=== PATIENT | male | born 1995 | race Caucasian/White ===

== ENCOUNTER 2018-04-04 12:48 | Emergency (ER) | payer BC, OTHER ==
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
[2018-04-04] MEDS ORDERED: Bacitracin Oint 1 GM U/D Packet TOP ONE (13:36)
--- NOTE | 2018-04-04 14:28 | CR ---
EXAMINATION: Two-view chest (PA and Lateral views). HISTORY: Shortness of breath. FINDINGS: The trachea is midline. The cardiomediastinal silhouette is within normal limits. No pulmonary infilt rates, effusions or pneumothorax. Osseous structures appear unremarkable. IMPRESSION: No acute cardiopulmonary process.
--- NOTE | 2018-04-04 14:31 | CR ---
EXAMINATION: Left knee HISTORY: Pain COMPARISON: None TECHNIQUE: 3 views FINDINGS/IMPRESSION: There is no acute osseous abnormality, joint effusion, dislocation, or fracture. Moderate prepatellar soft tissue swelling. Joint spaces and bone mineralization are normal.
== END 2018-04-04 15:00 | disposition home or self-care (01) ==
LOC: MW.ED 12:48
DX: S89.92XA Unspecified injury of left lower leg, initial encounter (principal); L03.116 Cellulitis of left lower limb; Z88.0 Allergy status to penicillin; Z88.2 Allergy status to sulfonamides; V59.9XXA Occupant (driver) (passenger) of pick-up truck or van injured in unspecified traffic accident, initial encounter
CPT/HCPCS: 71046; 71046-26; 73562-26-LT; 73562-LT; 99283

== ENCOUNTER 2019-07-23 19:34 | Emergency (ER) | payer OTHER ==
[2019-07-23] MEDS ORDERED: cefTRIAXone 1 GM in Premix Bag 1 BAG IV ONE (19:36)
[2019-07-23] MEDS ORDERED: HYDROmorphone 2 MG/ML Syringe IVPUSH ONE ×2 (19:37→21:00)
[2019-07-23] MEDS ORDERED: Diphtheria,Pertussis(Acell),Tetanus Vaccine 0.5 ML Syringe IM ONE (19:37)
[2019-07-23] MEDS ORDERED: Sodium Chloride 0.9% 1,000 ML IV ONE (19:44)
[2019-07-23] MEDS ORDERED: HYDROmorphone 1 MG/ML Syringe IVPUSH ONE (19:44)
[2019-07-23] MEDS ORDERED: cefTRIAXone 1 GM Vial IM ONE (19:45)
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
[2019-07-23 20:16] LABS: BLOOD UREA NITROGEN,BUN 10 mg/dL (7.0-18.0); CARBON DIOXIDE,CO2 24.6 mmol/L (21.0-32.0); CHLORIDE,CL 105 mmol/L (98-107); GLUCOSE RANDOM 120 mg/dL (74-106); POTASSIUM,K 3.2 mmol/L (3.5-5.1); SODIUM,NA 143 mmol/L (136-148)
== END 2019-07-23 21:14 ==
LOC: MW.ED 19:34
DX: S82.301B Unspecified fracture of lower end of right tibia, initial encounter for open fracture type I or II (principal); S93.04XA Dislocation of right ankle joint, initial encounter; Z88.0 Allergy status to penicillin; Z88.2 Allergy status to sulfonamides; V27.4XXA Motorcycle driver injured in collision with fixed or stationary object in traffic accident, initial encounter
CPT/HCPCS: 27840; 36415; 71045; 72170; 73600; 80053; 80320; 82550; 84484; 85025; 85610; 86850; 86900; 86901; 87040; 93005; 96360; 96365; 96375; 99285; J0696; J1170; J7040; 90471; G0480

== ENCOUNTER 2023-08-14 15:30 | Observation (INO) | payer SELFPAY ==
[2023-08-14] MEDS ORDERED: Sodium Chloride 0.9% 1,000 ML IV ONE ×2 (15:33→19:01)
[2023-08-14] MEDS ORDERED: Morphine 4 MG/ML Syringe IVPUSH ONE (15:33)
[2023-08-14] MEDS ORDERED: Ondansetron 4 MG/2 ML SDV IVPUSH ONE (15:33)
[2023-08-14 15:56] LABS: BASOPHILS PERCENT AUTO 0.2 % (0.0-1.5); EOSINOPHILS ABSOLUTE AUTO 0.1 K/uL (0.0-0.7); EOSINOPHILS PERCENT AUTO 0.3 % (0.0-7.0); HEMATOCRIT 51.9 % (38.0-50.0); HEMOGLOBIN 18.1 g/dL (13.0-17.0); LYMPHOCYTES ABSOLUTE AUTO 1.7 K/uL (0.6-2.4); LYMPHOCYTES PERCENT AUTO 9.7 % (16.0-40.0); MEAN CORPUSCULAR HEMOGLOBIN 31.2 pg (27.0-32.0); MEAN CORPUSCULAR HGB CONC 34.9 g/dL (31.0-37.0); MEAN CORPUSCULAR VOLUME 89.3 fL (80.0-98.0); MONOCYTES ABSOLUTE AUTO 1.3 K/uL (0.0-0.8); MONOCYTES PERCENT AUTO 7.3 % (0.0-15.0); NEUTROPHILS ABSOLUTE AUTO 14.2 K/uL (1.4-5.7); NEUTROPHILS PERCENT AUTO 82.5 % (48.0-80.0); NRBC ABSOLUTE 0 K/uL; PLATELET COUNT,PLT 260 K/uL (150-400); RED BLOOD CELL COUNT 5.81 M/uL (4.50-5.90); WHITE BLOOD CELL COUNT,WBC 17.23 K/uL (4.0-11.0)
[2023-08-14] MEDS ORDERED: cefOXitin 2 GM in Sodium Chloride 0.9% 50 ML IV ONE (16:05)
[2023-08-14 16:34] LABS: A/G RATIO 1.1 (0.9-1.6); ALBUMIN 4.4 g/dL (3.4-5.0); BILIRUBIN TOTAL 4.5 mg/dL (0.2-1.0); CALCIUM 9.6 mg/dL (8.5-10.1); CARBON DIOXIDE,CO2 21.5 mmol/L (21.0-32.0); CREATININE 1.5 mg/dL (0.8-1.3); EST CRCL DRUG DOSING (CG) 60.3 mL/min; PROTEIN TOTAL,TP 8.5 g/dL (6.4-8.2)
[2023-08-14] MEDS ORDERED: Iopamidol 755 MG/ML 500 ML Multipack Bottle IVPUSH STA (16:57)
[2023-08-14] MEDS ORDERED: HYDROmorphone 1 MG/ML Syringe IVPUSH ONE (17:05)
[2023-08-14] MEDS ORDERED: Famotidine 20 MG/2 ML SDV IVPUSH ONE (20:40)
[2023-08-14] MEDS ORDERED: Ropivacaine 0.5% 5 MG/ML 30 ML SDV ONE (20:48)
[2023-08-14] MEDS ORDERED: Bupivacaine 0.5% 30 ML SDV ONE (20:53)
[2023-08-14] MEDS ORDERED: Morphine 10 MG/ML SDV ONE (20:57)
[2023-08-14] MEDS ORDERED: Propofol 200 MG/20 ML SDV ONE (21:00)
[2023-08-14] MEDS ORDERED: fentaNYL 250 MCG/5 ML SDV ONE (21:00)
[2023-08-14] MEDS ORDERED: cefOXitin 1 GM Vial ONE (21:44)
[2023-08-14] MEDS ORDERED: Naloxone 0.4 MG/ML SDV IVPUSH PRN (22:37)
[2023-08-14] MEDS ORDERED: Acetaminophen 1,000 MG in Premix Bag 1 BAG IV PRN (22:37)
[2023-08-14] MEDS ORDERED: HYDROmorphone 1 MG/ML Syringe IVPUSH PRN (22:37)
[2023-08-14] MEDS ORDERED: Ondansetron 4 MG/2 ML SDV IVPUSH PRN (22:37)
[2023-08-14] MEDS ORDERED: Sodium Chloride 0.9% 1,000 ML IV SCH (22:45)
[2023-08-14] MEDS ORDERED: cefOXitin 2 GM in Sodium Chloride 0.9% 50 ML IV SCH (22:45)
[2023-08-14] MEDS: Levofloxacin/Dextrose 5%-Water 500 MG in Premix Bag 1 BAG IV SCH (23:56)
[2023-08-15] MEDS: metroNIDAZOLE/Normal Saline 500 MG in Premix Bag 1 BAG IV SCH ×5 (00:59→23:37)
[2023-08-15] MEDS: Acetaminophen/HYDROcodone 325-5 MG Tab PO PRN ×4 (01:10→20:25)
[2023-08-15 06:19] LABS: BASOPHILS PERCENT AUTO 0.2 % (0.0-1.5); EOSINOPHILS ABSOLUTE AUTO 0.1 K/uL (0.0-0.7); EOSINOPHILS PERCENT AUTO 0.5 % (0.0-7.0); HEMATOCRIT 41.2 % (38.0-50.0); HEMOGLOBIN 13.7 g/dL (13.0-17.0); LYMPHOCYTES ABSOLUTE AUTO 0.9 K/uL (0.6-2.4); LYMPHOCYTES PERCENT AUTO 9.4 % (16.0-40.0); MEAN CORPUSCULAR HEMOGLOBIN 30.9 pg (27.0-32.0); MEAN CORPUSCULAR HGB CONC 33.3 g/dL (31.0-37.0); MEAN CORPUSCULAR VOLUME 92.8 fL (80.0-98.0); MONOCYTES ABSOLUTE AUTO 0.8 K/uL (0.0-0.8); MONOCYTES PERCENT AUTO 8.2 % (0.0-15.0); NEUTROPHILS ABSOLUTE AUTO 7.7 K/uL (1.4-5.7); NEUTROPHILS PERCENT AUTO 81.7 % (48.0-80.0); NRBC ABSOLUTE 0 K/uL; PLATELET COUNT,PLT 179 K/uL (150-400); RED BLOOD CELL COUNT 4.44 M/uL (4.50-5.90); WHITE BLOOD CELL COUNT,WBC 9.39 K/uL (4.0-11.0)
[2023-08-15 06:48] LABS: ALBUMIN 2.8 g/dL (3.4-5.0); BILIRUBIN TOTAL 3.3 mg/dL (0.2-1.0); CALCIUM 8.1 mg/dL (8.5-10.1); CARBON DIOXIDE,CO2 29.1 mmol/L (21.0-32.0); CREATININE 1.3 mg/dL (0.8-1.3); EST CRCL DRUG DOSING (CG) 77.68 mL/min; POTASSIUM,K 4.4 mmol/L (3.5-5.1); PROTEIN TOTAL,TP 6.1 g/dL (6.4-8.2)
[2023-08-15 06:52] LABS: A/G RATIO 0.9 (0.9-1.6)
[2023-08-15] MEDS ORDERED: Phenylephrine HCl 0.5 MG/5 ML AMP IV ONE (14:38)
[2023-08-15] MEDS: Levofloxacin/Dextrose 5%-Water 500 MG in Premix Bag 1 BAG IV SCH (22:01)
[2023-08-16] MEDS: Acetaminophen/HYDROcodone 325-5 MG Tab PO PRN (03:00)
[2023-08-16] MEDS: metroNIDAZOLE/Normal Saline 500 MG in Premix Bag 1 BAG IV SCH (05:28)
[2023-08-16 07:06] LABS: A/G RATIO 0.7 (0.9-1.6); ALBUMIN 2.8 g/dL (3.4-5.0); BILIRUBIN TOTAL 1.8 mg/dL (0.2-1.0); CALCIUM 8.4 mg/dL (8.5-10.1); CARBON DIOXIDE,CO2 29.2 mmol/L (21.0-32.0); CREATININE 1.2 mg/dL (0.8-1.3); EST CRCL DRUG DOSING (CG) 84.16 mL/min; POTASSIUM,K 3.7 mmol/L (3.5-5.1); PROTEIN TOTAL,TP 6.6 g/dL (6.4-8.2)
== END 2023-08-16 09:27 | disposition home or self-care (01) ==
LOC: MW.ED 15:30 → MW.SDS 20:25 → MW.MS 20:25 → MW.SDS 08-15 14:34 → MW.MS 08-15 14:37
PROVIDERS: ADMIT Surgery; ATTEND Surgery
DX: K35.33 Acute appendicitis with perforation, localized peritonitis, and gangrene, with abscess (principal); Z88.2 Allergy status to sulfonamides; Z88.0 Allergy status to penicillin; Z87.891 Personal history of nicotine dependence
CPT/HCPCS: 36415; 44970; 64488; 74177; 80053; 83690; 85025; 96361; 96365; 96375; 99285; A9270; G0378; J0131; J0694; J1170; J1956; J2270; J2371; J2405; J2704; J2795; J3010; J3490; J7030; Q9967; 00840